=== PATIENT | female | born 1965 | race Hispanic/Latino ===

== ENCOUNTER 2016-06-11 11:29 | Emergency (ER) | payer MEDICAID, OTHER ==
[2016-06-11 11:39] VITALS: BMI 34.4
[2016-06-11 11:42] VITALS: TEMP 97.8; O2SAT 100
--- NOTE | 2016-06-11 12:24 | ED PDOC ---
Arrival/HPI - General Chief Complaint: Back Pain Time Seen by Provider: 06/11/16 11:40 Historian: Patient - History of Present Illness Narrative History of Present Illness (Text): 06/11/16 12:20 A 51 year old female who denies any previous medical history who presents to the emergency room complaining of back pain since yesterday. Patient reports she was trying to lift her mom when back pain developed. The back pain is in the mid-upper back on the right side and is worse with movement and according to her feels like a knot is there. Patient reports she did not take any medications for back pain. She reports she has a cough but denies any chest pain , abdominal pain, fevers, nausea, vomiting, urinary changes, hematuria or any other complaints at this time. Time/Duration: Other (yesterday) Symptom Onset: Sudden Symptom Course: Unchanged Quality: Other (pain) Activities at Onset: Rest Modifying Factors (Text): none Context: Home Associated Symptoms (Text): cough Past Medical History - Provider Review Nursing Documentation Reviewed: Yes - Tetanus Immunization Tetanus Immunization: Unknown - Past Medical History Past Medical History: No Previous - Psychiatric Hx Substance Use: No - Surgical History Hx Mastectomy: (left benign lumpectomy) Other/Comment: Ovarian Cyst Removal, Right Knee Cyst Removal, Left BreastCyst Removal - Suicidal Assessment Feels Threatened In Home Enviroment: No Family/Social History - Physician Review Nursing Documentation Reviewed: Yes Family/Social History: No Known Family HX Smoking Status: Heavy Smoker > 10 Cigarettes Daily Hx Alcohol Use: No Hx Substance Use: No Allergies/Home Meds Allergies/Adverse Reactions: Allergies No Known Allergies Allergy (Verified 06/11/16 11:39) Review of Systems - Physician Review All systems were reviewed & negative as marked: Yes - Review of Systems Constitutional: absent: Fevers Cardiovascular: absent: Chest Pain Gastrointestinal: absent: Abdominal Pain, Nausea, Vomiting Genitourinary Female: absent: Hematuria, Urine Output Changes Musculoskeletal: Back Pain Physical Exam Vital Signs Reviewed: Yes Vital Signs Temp Pulse Resp BP Pulse Ox 06/11/16 12:32 75 18 128/89 100 06/11/16 11:29 97.8 F 79 16 130/93 H 100 Temperature: Afebrile Blood Pressure: Hypertensive Pulse: Regular Respiratory Rate: Normal Appearance: Positive for: Well-Appearing, Non-Toxic, Comfortable Pain Distress: None Mental Status: Positive for: Alert and Oriented X 3 - Systems Exam Head: Present: Atraumatic, Normocephalic Mouth: Present: Moist Mucous Membranes Neck: Present: Normal Range of Motion Respiratory/Chest: Present: Clear to Auscultation, Good Air Exchange. No: Respiratory Distress, Accessory Muscle Use Cardiovascular: Present: Regular Rate and Rhythm, Normal S1, S2. No: Murmurs Abdomen: Present: Normal Bowel Sounds. No: Tenderness, Distention, Peritoneal Signs Back: Present: Other (R paraspinal tenderness in the lower thoracic area). No: Midline Tenderness Upper Extremity: Present: Normal Inspection. No: Cyanosis, Edema Lower Extremity: Present: Normal Inspection. No: Edema Skin: Present: Warm, Dry, Normal Color. No: Rashes Psychiatric: Present: Alert, Oriented x 3, Normal Insight, Normal Concentration Medical Decision Making ED Course and Treatment: 06/11/16 12:26 Impression: 51 year old female with back pain. Differential Diagnosis included but are not limited to: muscle spasm vs. muscle strain vs. atypical PNA Plan: -- Chest xray -- Dorsal thoracic spine radiology -- Labs -- Toradol, Ultram -- Reassess and disposition Prior Visits: Notes and results from previous visits were reviewed. Patient was reported to the emergency room on 03/25/14 for left lateral ankle pain. Progress Notes: Patient given a trigger point injectin with 1/2 inch 25G needle in area of pain. 06/11/16 13:11 CXR: nad as read by me. Thoracic spine: mild DJD; no fx as read by me. 06/11/16 13:18 Patient feels better s/p meds - will d/c. - RAD Interpretation Radiology Orders: 06/11/16 11:59 DORSAL (THORACIC) SPINE [RAD] Stat 06/11/16 12:00 CHEST TWO VIEWS (PA/LAT) [RAD] Stat - Medication Orders Current Medication Orders: Discontinued Medications Ketorolac Tromethamine (Toradol) 60 mg IM STAT STA Stop: 06/11/16 11:59 Last Admin: 06/11/16 12:54 Dose: 60 MG IM Administration Charges Document 06/11/16 12:54 SE (Rec: 06/11/16 12:54 SE [facility] [place]-[id number]) Injection Site MAR Injection Site Left Vastus Lateralis Charges for Administration # of IM Administrations 1 Tramadol HCl (Ultram) 50 mg PO STAT STA Stop: 06/11/16 12:00 Last Admin: 06/11/16 12:53 Dose: 50 MG - Wiliamibe Statement The provider has reviewed the documentation as recorded by the Jun Prakash All medical record entries made by the Wiliamibyasmine were at my direction and personally dictated by me. I have reviewed the chart and agree that the record accurately reflects my personal performance of the history, physical exam, medical decision making, and the department course for this patient. I have also personally directed, reviewed, and agree with the discharge instructions and disposition. Disposition/Present on Arrival - Present on Arrival Any Indicators Present on Arrival: No History of DVT/PE: No History of Uncontrolled Diabetes: No Urinary Catheter: No History of Decub. Ulcer: No History Surgical Site Infection Following: None - Disposition Have Diagnosis and Disposition been Completed?: Yes Diagnosis: Back pain Disposition: HOME/ ROUTINE Disposition Time: 13:20 Patient Plan: Discharge Condition: GOOD Discharge Instructions (ExitCare): Back Pain (ED), Muscle Spasm (ED) Additional Instructions: Avoid heavy lifting. Take the medications as prescribed. Follow up in the medical clinic. Return to the emergency department if any new concerning symptoms. Prescriptions: Baclofen [Lioresal] 1 tab PO TID PRN #15 tab PRN Reason: Pain, Moderate (4-7) Naproxen [Naprosyn] 500 mg PO BID PRN #20 tab PRN Reason: Pain traMADol [Ultram] 1 - 2 tab PO Q8H PRN #15 tab PRN Reason: Pain, Severe (8-10) Referrals: [facility] at [facility] [place] [Outside] - Follow up with primary
[2016-06-11 12:32] VITALS: BP 128/89; PULSE 75; RESP 18
--- NOTE | 2016-06-11 13:23 | RAD ---
HISTORY: low thoracic back pain, cough COMPARISON: No prior. TECHNIQUE: Chest PA and lateral FINDINGS: LUNGS: The lungs are well inflated and clear and clear. PLEURA: No significant pleural effusion identified. No pneumothorax apparent. CARDIOVASCULAR: Normal. OSSEOUS STRUCTURES: Within normal limits for the patient's age. VISUALIZED UPPER ABDOMEN: Normal. OTHER FINDINGS: None. IMPRESSION: No active pulmonary disease.
--- NOTE | 2016-06-11 13:25 | RAD ---
HISTORY: Lower thoracic back pain COMPARISON: No prior. FINDINGS: BONES: Vertebral alignment is normal. Thoracic kyphosis is maintained. There is no acute fracture or destructive bony lesion. There is mild diffuse bone demineralization. DISC SPACES: There are multilevel degenerative changes with anterior spurring, reduced disc heights and multilevel facet arthropathy. SOFT TISSUES: The paravertebral soft tissues are normal. OTHER FINDINGS: None. IMPRESSION: No acute fracture or destructive bony lesion. Mild multilevel degenerative disc disease.
== END 2016-06-11 13:34 | disposition home or self-care (01) ==
LOC: ED 11:29 → MERGE 11:29 → ED 13:34
DX: M54.9 Dorsalgia, unspecified (principal)
CPT/HCPCS: 71020; 72070; 96372; 99284; J1885

== ENCOUNTER 2016-08-19 21:48 | Emergency (ER) | payer MEDICAID, OTHER ==
[2016-08-19 21:49] VITALS: BMI 35.7
== END 2016-08-20 01:07 | disposition left against medical advice (07) ==
LOC: ED 21:48
DX: Z02.89 Encounter for other administrative examinations (principal); R10.9 Unspecified abdominal pain

== ENCOUNTER 2016-08-20 13:53 | Emergency (ER) | payer MEDICAID, OTHER ==
[2016-08-20 14:07] VITALS: BMI 352.9
[2016-08-20 15:05] LABS: URINE APPEARANCE CLEAR (CLEAR); URINE BILIRUBIN NEGATIVE (NEGATIVE); URINE BLOOD LARGE (NEGATIVE); URINE COLOR YELLOW (YELLOW); URINE GLUCOSE (UA) NEGATIVE (NEGATIVE); URINE KETONE NEGATIVE (NEGATIVE); URINE LEUKOCYTE ESTERASE TRACE Leu/uL (NEGATIVE); URINE PROTEIN NEGATIVE mg/dL (<30 mg/dL); URINE UROBILINOGEN 0.2 E.U./dL (<1 E.U./dL)
--- NOTE | 2016-08-20 15:08 | ED PDOC ---
Arrival/HPI - General Chief Complaint: Abdominal Pain Time Seen by Provider: 08/20/16 15:01 Historian: Patient - History of Present Illness Narrative History of Present Illness (Text): 08/20/16 15:01 51 y/o female, nkda, c/o suprapubic pressure with blood tinged urine after urinating started last night. Pt. stated that she feels the pressure, no vaginal bleeding or discharge, no dizziness, no headache or night sweat, no chest pain or shortness of breath, no palpitation, no other medical or psychological complaints. Past Medical History - Provider Review Nursing Documentation Reviewed: Yes - Infectious Disease Hx of Infectious Diseases: None - Tetanus Immunization Tetanus Immunization: Up to Date, Unknown - Reproductive Menopause: Yes - Past Medical History Past Medical History: No Previous - Cardiac Hx Cardiac Disorders: No - Pulmonary Hx Respiratory Disorders: (smoker) Hx Asthma: Yes - Neurological Hx Vertigo: No - HEENT Hx HEENT Disorder: Yes (glasses) - Renal Hx Renal Disorder: No - Endocrine/Metabolic Hx Endocrine Disorders: No - Hematological/Oncological Hx Blood Disorders: No - Integumentary Hx Dermatological Disorder: No - Musculoskeletal/Rheumatological Hx Falls: No - Gastrointestinal Hx Gastrointestinal Disorders: No - Genitourinary/Gynecological Hx Genitourinary Disorders: Yes (ovarian cyst) - Psychiatric Hx Depression: No Hx Emotional Abuse: No Hx Physical Abuse: No Hx Substance Use: No - Past Surgical History Past Surgical History: No Previous - Surgical History Hx Mastectomy: Yes (left benign lumpectomy) Other/Comment: Ovarian Cyst Removal, Right Knee Cyst Removal, Left BreastCyst Removal - Anesthesia Hx Anesthesia: Yes Hx Anesthesia Reactions: No Hx Malignant Hyperthermia: No - Suicidal Assessment Feels Threatened In Home Enviroment: No Family/Social History - Physician Review Nursing Documentation Reviewed: Yes Family/Social History: Unknown Family HX Smoking Status: Heavy Smoker > 10 Cigarettes Daily Hx Alcohol Use: No Hx Substance Use: No Hx Substance Use Treatment: No Allergies/Home Meds Allergies/Adverse Reactions: Allergies No Known Allergies Allergy (Verified 08/20/16 14:07) Home Medications: Home Meds Medication Instructions Recorded Confirmed Zolpidem Tartrate [Ambien] 10 mg PO HS 10/06/11 08/20/16 Methotrexate [Methotrexate] 5 tab PO QWK 08/20/16 08/20/16 Review of Systems - Review of Systems Constitutional: absent: Fatigue, Fevers Eyes: absent: Vision Changes ENT: absent: Hearing Changes Respiratory: absent: SOB, Cough Cardiovascular: absent: Chest Pain Gastrointestinal: absent: Abdominal Pain, Nausea, Vomiting Genitourinary Female: Other (suprapubic pressure). absent: Dysuria, Frequency, Hematuria, Urine Output Changes, Vaginal Bleeding, Vaginal Discharge Musculoskeletal: absent: Arthralgias Skin: absent: Rash, Pruritis, Skin Lesions Physical Exam Vital Signs Reviewed: Yes Vital Signs Temp Pulse Resp BP Pulse Ox 08/20/16 14:06 97.9 F 84 19 105/74 97 Temperature: Afebrile Blood Pressure: Normal Pulse: Regular Respiratory Rate: Normal Appearance: Positive for: Well-Appearing, Non-Toxic, Comfortable Pain Distress: None Mental Status: Positive for: Alert and Oriented X 3 - Systems Exam Head: Present: Atraumatic, Normocephalic Pupils: Present: PERRL Extroacular Muscles: Present: EOMI Conjunctiva: Present: Normal Mouth: Present: Moist Mucous Membranes Neck: Present: Normal Range of Motion Respiratory/Chest: Present: Clear to Auscultation, Good Air Exchange. No: Respiratory Distress, Accessory Muscle Use Cardiovascular: Present: Regular Rate and Rhythm, Normal S1, S2. No: Murmurs Abdomen: Present: Normal Bowel Sounds, Other (mild suprapubic tenderness). 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 ). No: Vaginal Discharge, Vaginal Bleeding, Vaginal Lesions, Adenexal Tenderness, Adenexal Mass, Cervical Motion Tendernes, Odor Back: Present: Normal Inspection Upper Extremity: Present: Normal Inspection. No: Cyanosis, Edema Lower Extremity: Present: Normal Inspection. No: Edema Neurological: Present: GCS=15, CN II-XII Intact, Speech Normal Skin: Present: Warm, Dry, Normal Color. No: Rashes Psychiatric: Present: Alert, Oriented x 3, Normal Insight, Normal Concentration Medical Decision Making ED Course and Treatment: 08/20/16 15:08 -ua/uc -UA show +UTI -Pt. complaining about the heaviness, will obtain the sonogram. 08/20/16 17:06 -sonogram show +ovarian cyst with +fibroid, discussed with the patient that she will need obgyn for follow up. -Discharge home with macrobid, motrin, stay hydrated, bed rest, follow up with your own pmd and obgyn within 2 days, return to the ER for any new or worsening signs or symptoms. - Lab Interpretations Lab Results: Lab Results 08/20/16 14:55: Urine Color Yellow, Urine Appearance Clear, Urine pH 6.0, Ur Specific [place] 1.025, Urine Protein Negative, Urine Glucose (UA) Negative, Urine Ketones Negative, Urine Blood Large H, Urine Nitrate Negative, Urine Bilirubin Negative, Urine Urobilinogen 0.2, Ur Leukocyte Esterase Trace H, Urine RBC 25 - 30, Urine WBC 2 - 5, Ur Epithelial Cells 4 - 5, Amorphous Sediment Few, Urine Bacteria Many - RAD Interpretation Radiology Orders: 08/20/16 15:19 TRANSVAGINAL [US] Stat HISTORY: suprapubic pressure COMPARISON: None available. TECHNIQUE: Transabdominal and transvaginal FINDINGS: UTERUS: Measures 15.9 x 8.6 x 10.9 cm. Heterogeneous echotexture. Two discrete fibroids identified. Right-sided uterine fibroid, 10.9 x 9.6 x 8.7 cm. Left-sided uterine fibroid, 3.3 x 3.2 x 2.7 cm. ENDOMETRIUM: Measures 14 Mm in diameter. Unremarkable. CERVIX: No cervical abnormality identified. RIGHT OVARY: Measures 1.9 x 3.1 x 2.3 cm. No solid mass. Normal flow. LEFT OVARY: Measures 3.8 x 3.1 x 2.9 cm. No solid mass. Normal flow. Simple cyst, 2.2 x 2.4 x 2.2 cm. FREE FLUID: No significant free fluid noted. OTHER FINDINGS: None. IMPRESSION: Two uterine fibroids, largest 10.9 cm. Enlarged uterus. Simple left ovarian cyst , 2.2 cm. 14 mm endometrium. Please note that this is abnormal for a postmenopausal woman. Driver Helper: Radiologist - PA / PANEL MACHINE SETTER / Resident Statement MD/DO has reviewed & agrees with the documentation as recorded. Disposition/Present on Arrival - Present on Arrival Any Indicators Present on Arrival: No History of DVT/PE: No History of Uncontrolled Diabetes: No Urinary Catheter: No History of Decub. Ulcer: No History Surgical Site Infection Following: None - Disposition Have Diagnosis and Disposition been Completed?: Yes Diagnosis: Cystitis, Ovarian cyst, Uterine fibroid Disposition: HOME/ ROUTINE Disposition Time: 15:08 Patient Plan: Discharge Patient Problems: Current Active Problems Problem Status Onset Cystitis Acute Condition: GOOD Additional Instructions: Discharge home with macrobid, motrin, stay hydrated, bed rest, follow up with your own pmd and obgyn within 2 days, return to the ER for any new or worsening signs or symptoms. Prescriptions: Ibuprofen [Motrin Tab] 600 mg PO QID PRN #30 tab PRN Reason: Other Nitrofurantoin Macrocrystals [Macrobid] 100 mg PO BID #14 cap Referrals: [facility] [place]] - Follow up with primary Aurora Woods MD [Staff Provider] - Follow up with primary Forms: WORK NOTE
[2016-08-20 15:09] LABS: URINE AMORPHOUS SEDIMENT FEW; URINE BACTERIA MANY (NEG); URINE RBC 25 - 30 /hpf (0-2)
--- NOTE | 2016-08-20 17:04 | US ---
HISTORY: suprapubic pressure COMPARISON: None available. TECHNIQUE: Transabdominal and transvaginal FINDINGS: UTERUS: Measures 15.9 x 8.6 x 10.9 cm. Heterogeneous echotexture. Two discrete fibroids identified. Right-sided uterine fibroid, 10.9 x 9.6 x 8.7 cm. Left-sided uterine fibroid, 3.3 x 3.2 x 2.7 cm. ENDOMETRIUM: Measures 14 Mm in diameter. Unremarkable. CERVIX: No cervical abnormality identified. RIGHT OVARY: Measures 1.9 x 3.1 x 2.3 cm. No solid mass. Normal flow. LEFT OVARY: Measures 3.8 x 3.1 x 2.9 cm. No solid mass. Normal flow. Simple cyst, 2.2 x 2.4 x 2.2 cm. FREE FLUID: No significant free fluid noted. OTHER FINDINGS: None. IMPRESSION: Two uterine fibroids, largest 10.9 cm. Enlarged uterus. Simple left ovarian cyst, 2.2 cm. 14 mm endometrium. Please note that this is abnormal for a postmenopausal woman.
[2016-08-20 17:42] VITALS: BP 105/69; PULSE 69; RESP 16; TEMP 97.7; O2SAT 98
--- NOTE | 2016-08-20 22:05 | CARD ---
APPROVED REPORT EKG Measurement Heart [id number] <Conclusion> Normal sinus rhythm Normal ECG
== END 2016-08-20 17:43 | disposition home or self-care (01) ==
LOC: ED 13:53
DX: N30.90 Cystitis, unspecified without hematuria (principal); D25.9 Leiomyoma of uterus, unspecified; N83.202 Unspecified ovarian cyst, left side

== ENCOUNTER 2018-06-04 18:05 | Emergency (ER) | payer MEDICAID, OTHER ==
[2018-06-04 18:06] VITALS: BMI 37.3
[2018-06-04 18:44] VITALS: RESP 18; TEMP 98.4
[2018-06-04] MEDS ORDERED: Sodium Chloride 0.9% 500 ML IV STA (18:59)
--- NOTE | 2018-06-04 19:04 | ED PDOC ---
Arrival/HPI - General Chief Complaint: Back Pain Time Seen by Provider: 06/04/18 18:07 Historian: Patient - History of Present Illness Narrative History of Present Illness (Text): 06/04/18 19:01 53-year-old female presents today with a 2-day history of left-sided abdominal pain and left-sided back pain. Patient complaining of a 4-day history of constipation. Complaining of decreased appetite. She denies nausea or vomiting. No chest pain or shortness of breath. She denies urinary symptoms. Denies any recent trauma or injury. No medications have been taken for pain at home. No other complaints. Past Medical History - Provider Review Nursing Documentation Reviewed: Yes - Travel History Have you recently traveled outside [place] w/in the past 3 mons?: No - Infectious Disease Hx of Infectious Diseases: None - Tetanus Immunization Tetanus Immunization: Up to Date, Unknown - Reproductive Menopause: Yes - Past Medical History Past Medical History: No Previous - Cardiac Hx Cardiac Disorders: No - Pulmonary Hx Respiratory Disorders: Yes Hx Asthma: Yes - Neurological Hx Neurological Disorder: No - HEENT Hx HEENT Disorder: No - Renal Hx Renal Disorder: No - Endocrine/Metabolic Hx Endocrine Disorders: No - Hematological/Oncological Hx Blood Disorders: Yes Hx Cancer: Yes (ovarian cancer) - Integumentary Hx Dermatological Disorder: No - Musculoskeletal/Rheumatological Hx Musculoskeletal Disorders: No Hx Falls: No - Gastrointestinal Hx Gastrointestinal Disorders: Yes Other/Comment: ventral hernia repair - Genitourinary/Gynecological Hx Genitourinary Disorders: Yes - Psychiatric Hx Psychophysiologic Disorder: No Hx Substance Use: No - Past Surgical History Past Surgical History: No Previous - Anesthesia Hx Anesthesia: Yes Hx Anesthesia Reactions: No Hx Malignant Hyperthermia: No - Suicidal Assessment Feels Threatened In Home Enviroment: No Family/Social History - Physician Review Nursing Documentation Reviewed: Yes Family/Social History: Unknown Family HX Smoking Status: Former Smoker Hx Alcohol Use: No Hx Substance Use: No Hx Substance Use Treatment: No Allergies/Home Meds Allergies/Adverse Reactions: Allergies No Known Allergies Allergy (Verified 08/20/16 14:07) Home Medications: Home Meds Medication Instructions Recorded Confirmed Zolpidem Tartrate [Ambien] 10 mg PO HS 05/28/17 06/04/18 Review of Systems - Review of Systems Constitutional: absent: Fatigue, Fevers Respiratory: absent: SOB, Cough Cardiovascular: absent: Chest Pain, Palpitations Gastrointestinal: Abdominal Pain, Constipation. absent: Nausea, Vomiting Genitourinary Female: absent: Dysuria, Frequency, Hematuria Musculoskeletal: Back Pain. absent: Arthralgias, Neck Pain Skin: absent: Rash, Pruritis Psychiatric: absent: Anxiety, Depression Physical Exam Vital Signs Reviewed: Yes Vital Signs Temp Pulse Resp BP Pulse Ox 06/04/18 18:29 98.4 F 72 18 116/73 98 Temperature: Afebrile Blood Pressure: Normal Pulse: Regular Respiratory Rate: Normal Appearance: Positive for: Well-Appearing, Non-Toxic, Comfortable Pain Distress: None Mental Status: Positive for: Alert and Oriented X 3 - Systems Exam Head: Present: Atraumatic Mouth: Present: Moist Mucous Membranes Neck: Present: Normal Range of Motion Respiratory/Chest: Present: Clear to Auscultation, Good Air Exchange. No: Respiratory Distress, Accessory Muscle Use Cardiovascular: Present: Regular Rate and Rhythm, Normal S1, S2. No: Murmurs Abdomen: Present: Tenderness (+ llq tenderness), Normal Bowel Sounds, Guarding. No: Distention, Peritoneal Signs, Rebound Back: Present: Normal Inspection, Paraspinal Tenderness (+ left lower lumbar paraspinal tenderness). No: CVA Tenderness, Midline Tenderness Upper Extremity: Present: Normal ROM Lower Extremity: Present: Normal ROM Neurological: Present: GCS=15, Speech Normal Skin: Present: Warm, Dry, Normal Color Psychiatric: Present: Alert, Oriented x 3 Medical Decision Making ED Course and Treatment: 06/04/18 19:04 Patient is nontoxic well appearing with stable vital signs presenting with left- sided abdominal pain and left lower back pain times 2 days with a 4-day history of constipation. hx of constipation in the past. CBC wnl CMP wnl Lipase wnl Urinalysis wnl CAT scan: FINDINGS: LUNG BASES: The lung bases appear clear. No pleural effusions are seen. LIVER: There is hepatomegaly noted. The liver measured an estimated 18.1 cm in the mid clavicular line. GALLBLADDER AND BILE DUCTS: The gallbladder appears within normal limits. No radioopaque gallstones are seen. No biliary ductal dilatation is evident. PANCREAS: Unremarkable. SPLEEN: Unremarkable. ADRENAL GLANDS: Unremarkable. KIDNEYS, URETERS, AND BLADDER: The kidneys appear within normal limits. There is no hydronephrosis or hydroureter. No urinary calculi are seen. The urinary bladder appeared normal in size and configuration. STOMACH AND BOWEL: Unremarkable appearance of the stomach and bowel. No evidence of bowel obstruction. There is mild mucosal wall thickening and fluid in the lumen seen involving the duodenum and small intestinal tract thought compatible with diffuse enteritis. A segment of mucosal wall thickening is noted in the descending, sigmoid and rectosigmoid regions thought compatible with colitis. Infectious or inflammatory etiologies are thought most likely. Minimal diverticulosis coli detected in the sigmoid-rectosigmoid region. No acute diverticulitis identified. APPENDIX: No evidence of acute appendicitis on CT examination. PERITONEUM: No free fluid. No free air. LYMPH NODES: No lymphadenopathy is evident. REPRODUCTIVE: Status post hysterectomy. VASCULATURE: No evidence of abdominal aortic aneurysm. Minor atherosclerotic vascular plaqu ing is noted. BONES: No aggressive appearing osseous lesion. No acute osseous pathology evident. IMPRESSION: 1. Evidence of diffuse enteritis. 2. Findings thought compatible with left kalyn-colitis. 3. Minimal diverticulosis coli in the sigmoid-rectosigmoid regions without acute diverticulitis detected. 4. Hepatomegaly. 5. Status post hysterectomy. Electronically signed on Jun 04, 2018 9:49:02 PM EDT by: Rehan Storey M.D., RASHAUN Certified By [facility] Fellowship Trained MRI and CT Specialist Patient reassessment: pt feeling better after medications. pt started on vantin and flagyl Po for colitis. Discussed all results with patient in depth. pt advised to take medications as prescribed and f/u with PMD and GI doctor within the next 2 days. pt states she has appointment with PMD on fridayjune 08. pt was advised to return immediately if symptoms worsen,persist or if new symptoms develop; high fevers, increasing pain, vomiting/diarrhea or if any other concerning symptoms develop. Patient verbalizes understanding of discharge instructions and need for immediate followup. All aspects of this case were discussed the attending of record. Impression: Abdominal pain, back pain, colitis. Motrin every 6 hours as needed for pain Vantin twice daily x 10 days. Flagyl one tablet three times daily x10 days increase fluids Follow up with the GI doctor within the next 2 days. Follow up with primary care physician within the next 2 days Return immediately if symptoms worsen persist or if new symptoms develop: High fevers, increasing pain, vomiting, diarrhea or any other concerning symptoms develop Reassessment Condition: Re-examined, Improved - RAD Interpretation Radiology Orders: 06/04/18 18:59 ABD & PELVIS IV CONTRAST ONLY [CT] Stat - Medication Orders Current Medication Orders: Sodium Chloride (Sodium Chloride 0.9%) 500 mls @ 999 mls/hr IV .Q31M STA Stop: 06/04/18 19:29 Disposition/Present on Arrival - Present on Arrival Any Indicators Present on Arrival: No History of DVT/PE: No History of Uncontrolled Diabetes: No Urinary Catheter: No History of Decub. Ulcer: No History Surgical Site Infection Following: None - Disposition Have Diagnosis and Disposition been Completed?: Yes Diagnosis: Abdominal pain, Back pain, Colitis Disposition: HOME/ ROUTINE Disposition Time: 22:36 Patient Plan: Discharge Condition: GOOD Discharge Instructions (ExitCare): Acute Abdomen (Belly Pain), Adult (DC), Colitis (DC), Low Back Pain (DC) Additional Instructions: Motrin every 6 hours as needed for pain Vantin twice daily x 10 days. Flagyl one tablet three times daily x10 days flexeril; 1 tablet every 8 hours as needed for muscle spasms; may cause drowsiness. increase fluids Follow up with the GI doctor within the next 2 days. Follow up with primary care physician within the next 2 days Return immediately if symptoms worsen persist or if new symptoms develop: High fevers, increasing pain, vomiting, diarrhea or any other concerning symptoms develop Prescriptions: Cefpodoxime [Vantin] 100 mg PO BID #20 tab Cyclobenzaprine [Cyclobenzaprine HCl] 10 mg PO Q8 #10 tab Ibuprofen [Motrin] 600 mg PO Q6H PRN #20 tab PRN Reason: pain/fever reduction Metronidazole [Flagyl] 500 mg PO TID #30 tab Referrals: Julienne Cuevas MD [Primary Care Provider] - Follow up with primary Sonya Romero MD [Medical Doctor] - Follow up with primary Forms: [employer] (Mohawk), WORK NOTE
[2018-06-04 19:37] LABS: URINE BILIRUBIN NEGATIVE (NEGATIVE); URINE BLOOD NEGATIVE (NEGATIVE); URINE GLUCOSE (UA) NEGATIVE (NEGATIVE); URINE LEUKOCYTE ESTERASE NEGATIVE Leu/uL (NEGATIVE); URINE PROTEIN NEGATIVE mg/dL (<30 mg/dL); URINE UROBILINOGEN 0.2 E.U./dL (<1 E.U./dL)
[2018-06-04 19:40] LABS: URINE APPEARANCE CLEAR (CLEAR); URINE COLOR YELLOW (YELLOW)
[2018-06-04 19:43] LABS: BASO # 0.07 K/mm3 (0.0-2.0); BASO % 0.9 % (0.0-3.0); EOS # 0.2 (0.0-0.7); EOS % 2.3 % (1.5-5.0); HEMOGLOBIN 13.9 g/dL (12.0-16.0); LYMPH # 2.4 (1.2-3.4); LYMPH % 30.5 % (22.0-35.0); MEAN CELL VOLUME 92.4 fl (80.0-105.0); MEAN CORPUSCULAR HEMOGLOBIN 30.3 pg (25.0-35.0); MEAN CORPUSCULAR HGB CONC 32.8 g/dl (31.0-37.0); MEAN PLATELET VOLUME 11.8 fl (7.0-11.0); MONO # 0.4 (0.1-0.6); MONO % 4.5 % (1.0-6.0); RBC 4.59 10^6/uL (3.5-6.1); RED CELL DISTRIBUTION WIDTH 13.9 % (11.5-14.5); WHITE BLOOD COUNT 7.8 10^3/uL (4.5-11.0)
[2018-06-04 20:02] LABS: ALB/GLOB RATIO 1.4 (1.1-1.8); ALBUMIN 4.2 g/dL (3.0-4.8); ALT/SGPT 21 U/L (7-56); AST/SGOT 24 U/L (14-36); BLOOD UREA NITROGEN 13 mg/dL (7-21); CALCIUM 9.3 mg/dL (8.4-10.5); GFR NON-AFRICAN AMERICAN > 60; LIPASE 105 U/L (23-300)
[2018-06-04] MEDS ORDERED: Cefpodoxime (Vantin) 100 mg Tab PO STA (22:24)
[2018-06-04 22:37] VITALS: BP 118/76; PULSE 68; O2SAT 100
--- NOTE | 2018-06-05 10:18 | CT ---
Date of service: 06/04/2018 PROCEDURE: CT Abdomen and Pelvis with contrast HISTORY: llq abd pain/ left low back pain COMPARISON: None available. TECHNIQUE: Contrast dose: 150 mL Omnipaque 350 IV Radiation dose: Total exam DLP = 948.52 mGy-cm. This CT exam was performed using one or more of the following dose reduction techniques: Automated exposure control, adjustment of the mA and/or kV according to patient size, and/or use of iterative reconstruction technique. FINDINGS: LOWER THORAX: No visible consolidation, pleural effusion, or pneumothorax. LIVER: Hepatomegaly. GALLBLADDER AND BILE DUCTS: Unremarkable. PANCREAS: Unremarkable. SPLEEN: Unremarkable. ADRENALS: Unremarkable. KIDNEYS AND URETERS: The kidneys enhance symmetrically. No hydronephrosis or obstructing calculus identified. VASCULATURE: No aortic aneurysm. No atherosclerotic calcification or mural plaque present. BOWEL: Stomach is nondistended. Lack of oral contrast limits evaluation for bowel pathology. Bowel loops appear within normal limits of caliber without evidence of obstruction. Diverticulosis. Mild wall thickening of the sigmoid colon. APPENDIX: The appendix appears within normal limits of caliber. No secondary signs of acute appendicitis. PERITONEUM: No significant free fluid. No definite free air. LYMPH NODES: No bulky adenopathy identified. BLADDER: Under distention of the urinary bladder limits evaluation. REPRODUCTIVE: Uterus is absent consistent with hysterectomy. BONES: Degenerative changes. OTHER FINDINGS: None. IMPRESSION: Hepatomegaly. Diverticulosis. Mild wall thickening of the sigmoid colon; correlate clinically for possibility of colitis. Preliminary impression was provided by [employer].
== END 2018-06-04 22:58 | disposition home or self-care (01) ==
LOC: ED 18:05
DX: K52.9 Noninfective gastroenteritis and colitis, unspecified (principal); M54.9 Dorsalgia, unspecified; Z85.43 Personal history of malignant neoplasm of ovary
CPT/HCPCS: 74177; 80053; 81003; 81025; 83690; 85025; 96374; 99284; J1885; J7040; Q9967

== ENCOUNTER 2018-07-01 16:38 | Emergency (ER) | payer MEDICAID ==
[2018-07-01 16:39] VITALS: BMI 37.3
[2018-07-01 16:48] VITALS: TEMP 97.7; O2SAT 95
[2018-07-01] MEDS ORDERED: Lidocaine 1% Inj (20ml) IJ STA (17:36)
--- NOTE | 2018-07-01 17:47 | ED PDOC ---
Arrival/HPI - General Chief Complaint: Abnormal Skin Integrity Time Seen by Provider: 07/01/18 17:15 - History of Present Illness Narrative History of Present Illness (Text): 07/01/18 17:43 53 f presents to the Ed with chief complaint of left groin pain. ongoing for 1 month, started small and progressed to larger size, no fevers, no chills. Patient presents today because she could not bear the pain any longer. Patient states she was prescribed cipro by her GI but she does not know why it was prescribed. Past Medical History - Provider Review Primary Care Provider: Makenna Cuevas - Infectious Disease Hx of Infectious Diseases: None - Tetanus Immunization Tetanus Immunization: Up to Date, Unknown - Past Medical History Past Medical History: No Previous - Cardiac Hx Cardiac Disorders: No - Pulmonary Hx Respiratory Disorders: Yes Hx Asthma: Yes - Neurological Hx Neurological Disorder: No - HEENT Hx HEENT Disorder: No - Renal Hx Renal Disorder: No - Endocrine/Metabolic Hx Endocrine Disorders: No - Hematological/Oncological Hx Blood Disorders: Yes Hx Cancer: Yes (ovarian cancer) - Integumentary Hx Dermatological Disorder: No - Musculoskeletal/Rheumatological Hx Musculoskeletal Disorders: No Hx Falls: No - Gastrointestinal Hx Gastrointestinal Disorders: Yes Other/Comment: ventral hernia repair - Genitourinary/Gynecological Hx Genitourinary Disorders: Yes - Psychiatric Hx Psychophysiologic Disorder: No Hx Substance Use: No - Past Surgical History Past Surgical History: No Previous - Anesthesia Hx Anesthesia: Yes Hx Anesthesia Reactions: No Hx Malignant Hyperthermia: No - Suicidal Assessment Feels Threatened In Home Enviroment: No Family/Social History Family/Social History: Unknown Family HX Smoking Status: Heavy Smoker > 10 Cigarettes Daily Hx Alcohol Use: No Hx Substance Use: No Hx Substance Use Treatment: No Allergies/Home Meds Allergies/Adverse Reactions: Allergies No Known Allergies Allergy (Verified 07/01/18 16:45) Home Medications: Home Meds Medication Instructions Recorded Confirmed Zolpidem Tartrate [Ambien] 10 mg PO HS 05/28/17 06/04/18 Review of Systems - Physician Review All systems were reviewed & negative as marked: Yes Physical Exam - Physical Exam Narrative Physical Exam (Text): 07/01/18 17:45 Gen: VS reviewed, alert, well developed, well nourished, nontoxic, mild distress Eye: EOMI, PERRL Neck: no JVD, supple, no adenopathy Abd: soft, nontender, no guarding, no rebound, no rigidity Ext: no edema Skin: good color, no rash, no cyanosis, there a large area of induration in the left groin/pubic area, there is mild overlying cellulitic skin changes, +pain with palpation. Lesion is approx 3cm in widest diameter. 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 Psych: responds appropriately to questions, normal affect Neuro: oriented x3, CN2-12 intact grossly, motor intact, sensation intact Vital Signs Temp Pulse Resp BP Pulse Ox 07/01/18 16:47 97.7 F 92 H 18 142/87 95 Medical Decision Making ED Course and Treatment: 07/01/18 17:47 simple skin abscess of the left pubic area. bedside ultrasound performed which shows a large fluid collection with the deepest depth approx 1cm with central complex fluid. 07/01/18 18:48 [address]x prescription discussed with [address] meyers and he is not sure offhand why the patient is on cipro patient was seen for left groin abscess, I&D by myself, wound was packed, abx bactrim and keflex (mild overlying cellulitis), return in two days for wound check. - Medication Orders Current Medication Orders: Discontinued Medications Lidocaine HCl (Lidocaine 1% (20ml)) 20 ml IJ STAT STA Stop: 07/01/18 17:37 Procedures - Time-Out Type of Procedure: I&D left groin abscess Correct Patient (with visual ID + MR# on ID Band): Yes Correct Procedure: Yes Physician Name: moncho - Incision and Drainage Site: left groin Blade Size: 11 I & D Procedure: betadine prep, sterile drapes applied, gauze wick placed Progress: site was anesthetized with 20ml of 1%lido, a star shaped incision was made in the most fluctuant area of the abscess, the abscess drained large amount of pus and blood and loculations were broken up with hemostat. wound was packed with betadine soaked packing(1/4in), dressing applied, patient tolerated procedure well. Disposition/Present on Arrival - Present on Arrival Any Indicators Present on Arrival: No History of DVT/PE: No History of Uncontrolled Diabetes: No Urinary Catheter: No History of Decub. Ulcer: No History Surgical Site Infection Following: None - Disposition Have Diagnosis and Disposition been Completed?: Yes Diagnosis: Groin abscess Disposition: HOME/ ROUTINE Disposition Time: 18:46 Patient Plan: Discharge Patient Problems: Current Active Problems Problem Status Onset Groin abscess Acute Condition: STABLE Discharge Instructions (ExitCare): Skin Abscess Additional Instructions: return in two days to have the wound checked. Prescriptions: Cephalexin [cephalexin] 500 mg PO BID 5 Days #10 cap Ibuprofen [Motrin Tab] 600 mg PO QID #30 tab Sulfamethoxazole/Trimethoprim [Bactrim Ds Tablet] 1 each PO BID 5 Days #10 tablet Referrals: Julienne Cuevas MD [Primary Care Provider] - Follow up with primary Forms: [facility] (Estonian), WORK NOTE
[2018-07-01 19:29] VITALS: BP 132/89; PULSE 81; RESP 17
== END 2018-07-01 19:12 | disposition home or self-care (01) ==
LOC: ED 16:38
DX: L02.214 Cutaneous abscess of groin (principal)

== ENCOUNTER 2018-07-03 10:14 | Emergency (ER) | payer MEDICAID, OTHER ==
[2018-07-03 10:14] VITALS: BMI 37.3
[2018-07-03 10:21] VITALS: BP 114/77; PULSE 98; RESP 18; TEMP 97.5; O2SAT 97
--- NOTE | 2018-07-03 10:42 | ED PDOC ---
Arrival/HPI - General Chief Complaint: Wound Check Time Seen by Provider: 07/03/18 10:17 Historian: Patient - History of Present Illness Narrative History of Present Illness (Text): 07/03/18 10:49 53 yo F presents to the emergency room for wound check status post I&D of an abscess to the left groin. Patient states that the packing has fallen out, otherwise she reports no pain, redness, swelling, fever, abdominal pain, nausea, vomiting, urinary symptoms. Past Medical History - Infectious Disease Hx of Infectious Diseases: None - Tetanus Immunization Tetanus Immunization: Up to Date, Unknown - Past Medical History Past Medical History: No Previous - Cardiac Hx Cardiac Disorders: No - Pulmonary Hx Respiratory Disorders: Yes Hx Asthma: Yes - Neurological Hx Neurological Disorder: No - HEENT Hx HEENT Disorder: No - Renal Hx Renal Disorder: No - Endocrine/Metabolic Hx Endocrine Disorders: No - Hematological/Oncological Hx Blood Disorders: Yes Hx Cancer: Yes (ovarian cancer) - Integumentary Hx Dermatological Disorder: No - Musculoskeletal/Rheumatological Hx Musculoskeletal Disorders: No Hx Falls: No - Gastrointestinal Hx Gastrointestinal Disorders: Yes Other/Comment: ventral hernia repair - Genitourinary/Gynecological Hx Genitourinary Disorders: Yes - Psychiatric Hx Psychophysiologic Disorder: No Hx Substance Use: No - Past Surgical History Past Surgical History: No Previous - Anesthesia Hx Anesthesia: Yes Hx Anesthesia Reactions: No Hx Malignant Hyperthermia: No - Suicidal Assessment Feels Threatened In Home Enviroment: No Family/Social History Family/Social History: No Known Family HX Smoking Status: Heavy Smoker > 10 Cigarettes Daily Hx Alcohol Use: No Hx Substance Use: No Hx Substance Use Treatment: No Allergies/Home Meds Allergies/Adverse Reactions: Allergies No Known Allergies Allergy (Verified 07/03/18 10:17) Home Medications: Home Meds Medication Instructions Recorded Confirmed Zolpidem Tartrate [Ambien] 10 mg PO HS 05/28/17 06/04/18 Review of Systems - Review of Systems Constitutional: absent: Fatigue, Fevers Musculoskeletal: absent: Arthralgias, Back Pain, Neck Pain Skin: Abscess. absent: Rash, Laceration Physical Exam Vital Signs Temp Pulse Resp BP Pulse Ox 07/03/18 10:20 97.5 F L 98 H 18 114/77 97 Temperature: Afebrile Blood Pressure: Normal Pulse: Regular Respiratory Rate: Normal Appearance: Positive for: Well-Appearing, Non-Toxic, Comfortable Pain Distress: None Mental Status: Positive for: Alert and Oriented X 3 - Systems Exam Upper Extremity: Present: Normal Inspection. No: Edema Lower Extremity: Present: Normal Inspection. No: Edema Neurological: Present: GCS=15, CN II-XII Intact, Speech Normal, Motor Func Grossly Intact, Normal Sensory Function Skin: Present: Warm, Dry, Normal Color, Other (+healing open abscess to the L groin, without erythema, edema, or tenderness. ). No: Rashes Psychiatric: Present: Alert, Oriented x 3, Normal Insight, Normal Concentration Medical Decision Making ED Course and Treatment: 07/03/18 10:52 Advised to follow up with primary care physician in 1-2 days without fail. Advised to continue to take antibiotics as prescribed. Return to the emergency room at any time for any new or worsening symptoms. Patient states she fully agrees with and understands discharge instructions. States that she agrees with the plan and disposition. Verbalized and repeated discharge instructions and plan. I have given the patient opportunity to ask any additional questions. - PA / COOKER SULFITE / Resident Statement MD/DO has reviewed & agrees with the documentation as recorded. Disposition/Present on Arrival - Present on Arrival Any Indicators Present on Arrival: No History of DVT/PE: No History of Uncontrolled Diabetes: No Urinary Catheter: No History of Decub. Ulcer: No History Surgical Site Infection Following: None - Disposition Have Diagnosis and Disposition been Completed?: Yes Diagnosis: Wound check, abscess Disposition: HOME/ ROUTINE Disposition Time: 10:30 Patient Plan: Discharge Patient Problems: Current Active Problems Problem Status Onset Wound check, abscess Acute Condition: STABLE Discharge Instructions (ExitCare): Wound Care (DC) Additional Instructions: Thank you for letting us take care of you today. You were treated for wound check. The emergency medical care you received today was directed at your acute symptoms. Continue taking current antibiotics. Clean wound with regular soap and water. It may take several days for your symptoms to resolve. Return to the Emergency Department if your symptoms worsen, do not improve, or if you have any other problems. Please contact your doctor in 2 days for re-evaluation and follow up. Bring any paperwork you were given at discharge with you along with any medications you are taking to your follow up visit. Our treatment cannot replace ongoing medical care by a primary care provider (PCP) outside of the emergency department. Thank you for allowing the [facility] team to be part of your care today. Forms: [employer] (German), WORK NOTE
== END 2018-07-03 11:09 | disposition home or self-care (01) ==
LOC: ED 10:14
DX: Z48.817 Encounter for surgical aftercare following surgery on the skin and subcutaneous tissue (principal)